=== PATIENT | male | born 1960 | race Caucasian/White ===

== ENCOUNTER 2023-02-15 11:17 | Day surgery (SDC) | payer OTHER ==
[2023-02-15] VITALS (12 sets, daily range): BP systolic 108–137; BP diastolic 58–95
[~2023-02-15] VITALS: Ht 185.4 cm; Wt 97.8 kg
[~2023-02-15 11:17] MED LIST: ACET500 PO; ALDACTONE25 MG PO; ALYQ20 MG PO; ASCO500 PO; ATOR80 PO; BUSP10 PO; BUSP5; CLON.5 PO; CLON1 PO; ELIQUIS5 M2 PO; ELIQUIS5 M6 PO; ENTRESTO 24 MG1 EAC2 PO; ENTRESTO 24 MG1 EACH PO; LIDO700A20 TOP; MAGCHL64ER PO; MAGNESIUM OXID500 MG PO; METO25ER PO; MULVITA PO; OMEP20ER; OMEP20ER PO; PARO20 PO; POTCHL20ER PO; Percocet 5-3251 EACH PO; Robaxin750 MG PO
--- NOTE | 2023-02-15 12:47 | NUR ---
Ambulatory in Day Surgery Patient confirms NPO status and agrees with scheduled surgery. History, Chart, Medications and Allergies reviewed before start of procedure.Pre-Op teaching done. Pt verbalizes understanding. Patient confirms NPO status and agrees with scheduled surgery. Patient States Post-Procedure ride home has been arranged.
--- NOTE | 2023-02-15 15:15 | NUR ---
PT ARRIVED IN PAIN STATING 02/14. 50MCG IV FENTANYL PUSHED AND INFILTRATED. NEW IV START IN LEFT FA AND 50MCG IV FENTANYL GIVEN.
--- NOTE | 2023-02-15 16:51 | NUR ---
Discharge instructions reviewed with patient. Patient verbalizes understanding. Copy given to patient to take home. Patient States Post-Procedure ride home has been arranged. Discharged via wheelchair to private car for ride home.
== END 2023-02-15 17:00 | disposition home or self-care (01) ==
LOC: ORSCMMR 11:17 → ORD 12:30 → ORSCMMR 17:00
PROVIDERS: Orthopaedic Surgery
PROC: 0QSF04Z Reposition Left Patella with Internal Fixation Device, Open Approach (ICD-10-PCS; principal; 2023-02-15 12:30)
DX: S82.042A Displaced comminuted fracture of left patella, initial encounter for closed fracture (principal); W18.30XA Fall on same level, unspecified, initial encounter; I10 Essential (primary) hypertension; I25.10 Atherosclerotic heart disease of native coronary artery without angina pectoris; K21.9 Gastro-esophageal reflux disease without esophagitis; Z79.899 Other long term (current) drug therapy
CPT/HCPCS: A9270; J0690; J1100; J1170; J1885; J2250; J2405; J2704; J3010; J7120